=== PATIENT | female | born 1990 | race Caucasian/White ===

== ENCOUNTER 2016-11-29 17:45 | Emergency (ER) | payer OTHER ==
[~2016-11-29] VITALS: Ht 172.7 cm; Wt 104.3 kg
[2016-11-29] MEDS ORDERED: NAPROSYN500 MG PO (19:27)
[2016-11-29 19:38] VITALS: BP 132/77
== END 2016-11-29 19:39 | disposition home or self-care (01) ==
LOC: ER 17:45
DX: S93.401A Sprain of unspecified ligament of right ankle, initial encounter (principal); F17.210 Nicotine dependence, cigarettes, uncomplicated; W01.0XXA Fall on same level from slipping, tripping and stumbling without subsequent striking against object, initial encounter; Y93.89 Activity, other specified; Y92.89 Other specified places as the place of occurrence of the external cause; Y99.9 Unspecified external cause status

== ENCOUNTER 2017-02-22 17:18 | Emergency (ER) | payer OTHER ==
[~2017-02-22] VITALS: Ht 172.7 cm; Wt 113.4 kg
[~2017-02-22 17:18] MED LIST: NAPROSYN500 MG PO
[2017-02-22 17:36] VITALS: BP 140/76
[2017-02-22] MEDS ORDERED: PREDNISONE 20 M20 MG PO (17:37)
== END 2017-02-22 17:50 | disposition home or self-care (01) ==
LOC: ER 17:18
DX: M54.31 Sciatica, right side (principal); E66.9 Obesity, unspecified; R20.2 Paresthesia of skin; F17.210 Nicotine dependence, cigarettes, uncomplicated; F10.99 Alcohol use, unspecified with unspecified alcohol-induced disorder

== ENCOUNTER 2017-08-08 00:12 | Emergency (ER) | payer OTHER ==
[~2017-08-08] VITALS: Ht 172.7 cm; Wt 113.4 kg
--- NOTE | ~2017-08-08 | EKG ---
[address] [place] [address] ELECTROCARDIOGRAM REPORT Name: SAMEER ALY Room #: DEP Roby#: [id number] Admission: 08/08/17 Attend Phys: Discharge: 08/08/17 Date of : [birth year] Report #: [id number] THIS REPORT FOR: //name// [facility] ED Test Date: 2017-08-08 Test Time: 01:31:47 Pat Name: SAMEER ALY Department: Room: Gender: F [facility] [employer]: TEO : 1990 Requested By: Lloyd Amos Order Number: [id number] MD: Nikolay Brewer Measurements Intervals Victor Rate: 113 P: 42 MT: 156 QRS: 15 QRSD: 75 T: -2 QT: 325 QTc: 446 Interpretive Statements Sinus tachycardia No significant abnormality No previous ECG available for comparison Electronically Signed On 08-08-2017 8:25:20 [employer]IL [employer] by Nikolay Brewer [email or web address] <ELECTRONICALLY SIGNED> By: Nikolay Brewer MD, [facility] 08/08/17 0825 0131 0131 Nikolay Brewer MD, FACC /EPI
[~2017-08-08 00:12] MED LIST changes: +PREDNISONE 20 M20 MG PO
[2017-08-08] MEDS ORDERED: NYQUIL (00:24)
[2017-08-08] MEDS ORDERED: IBUPROFEN 200200 M1 PO (00:24)
[2017-08-08 01:05] LABS: ABSOLUTE NEUTROPHILS 5.7 thou/uL (1.4-8.2); BASOPHILS 0.5 % (0.0-2.0); EOSINOPHILS 0.6 % (0.0-3.0); HEMATOCRIT 45.4 % (37.0-47.0); HEMOGLOBIN 15.7 gm/dL (12.0-15.0); MCH 35.5 pg (26.0-34.0); MCHC 34.5 g/dL (28.0-37.0); MCV 102.8 fL (80.0-100.0); MONOCYTES 8.3 % (1.0-8.0); PLATELET COUNT 239 thou/uL (150-400); POLYS 78.6 % (36.0-66.0); RBC 4.42 mil/uL (4.20-5.00); RDW 14.2 % (10.5-14.5); WBC 7.2 thou/uL (4.0-11.0)
[2017-08-08 01:07] LABS: ANION GAP 12 mmol/L (7-16); BUN 4 mg/dL (7-18); CALCIUM 8.6 mg/dL (8.5-10.1); CHLORIDE 103 mmol/L (98-107); CO2 24 mmol/L (21-32); CREATININE 0.9 mg/dL (0.6-1.0); GLUCOSE 107 mg/dL (74-106); SODIUM 139 mmol/L (136-145)
[2017-08-08 01:11] LABS: POTASSIUM 3.9 mmol/L (3.5-5.1)
[2017-08-08 01:16] LABS: TROPONIN-I < 0.04 ng/mL (<0.06)
[2017-08-08] MEDS ORDERED: ULTRAM 50MG TAB50 MG PO (02:43)
[2017-08-08] MEDS ORDERED: IBUPROFEN 800800 M1 PO (02:43)
[2017-08-08] MEDS ORDERED: ZOFRAN ODT4 MG PO (03:20)
[2017-08-08] MEDS ORDERED: PROMETHAZINE/C118 ML PO (03:20)
[2017-08-08] MEDS ORDERED: IBUPROFEN 600600 M1 PO (03:20)
== END 2017-08-08 03:29 | disposition home or self-care (01) ==
LOC: ER 00:12
PROVIDERS: Emergency Medicine
DX: J11.1 Influenza due to unidentified influenza virus with other respiratory manifestations (principal); R07.89 Other chest pain; F17.210 Nicotine dependence, cigarettes, uncomplicated

== ENCOUNTER 2017-08-15 16:41 | Emergency (ER) | payer OTHER ==
[~2017-08-15] VITALS: Ht 172.7 cm; Wt 122.5 kg
[~2017-08-15 16:41] MED LIST changes: +IBUPROFEN 200200 M1 PO; +IBUPROFEN 600600 M1 PO; +IBUPROFEN 800800 M1 PO; +NYQUIL; +PROMETHAZINE/C118 ML PO; +ULTRAM 50MG TAB50 MG PO; +ZOFRAN ODT4 MG PO
== END 2017-08-15 17:50 | disposition home or self-care (01) ==
LOC: ER 16:41
DX: J06.9 Acute upper respiratory infection, unspecified (principal); R04.2 Hemoptysis; R07.89 Other chest pain; F17.210 Nicotine dependence, cigarettes, uncomplicated